=== PATIENT | male | born 1985 | race Asian ===

== ENCOUNTER 2019-07-04 21:38 | Inpatient (IN) | payer OTHER ==
[~2019-07-04] VITALS: Ht 180.3 cm; Wt 57.7 kg
[2019-07-04 22:12] LABS: BASOPHIL % 0.3 % (0-2); PLATELET COUNT 306 x10^3mcL (130-400)
[2019-07-04 22:15] LABS: RED CELL DISTRIBUTION WIDTH 15.8 % (11.5-14.5)
[2019-07-04 22:21] LABS: CALCIUM 7.5 mg/dL (8.5-10.1); CARBON DIOXIDE 23.7 mmol/L (21-32); CHLORIDE SERUM 111 mmol/L (98-107); GFR1 > 60 mL/min; GLUCOSE SERUM 122 mg/dL (74-106); POTASSIUM SERUM 3.4 mmol/L (3.5-5.1); SODIUM SERUM 145 mmol/L (136-145)
[2019-07-04 22:27] LABS: ALKALINE PHOSPHATASE 73 U/L (46-116); ALT/SGPT 16 U/L (16-63); AMYLASE 41 U/L (25-115); AST/SGOT 7 U/L (15-37); BILIRUBIN TOTAL 0.26 mg/dL (0.20-1.00); LIPASE 131 IU/L (73-393)
[2019-07-04 22:31] LABS: ALBUMIN 2.9 g/dL (3.4-5.0); TOTAL PROTEIN, SERUM 5.5 g/dL (6.4-8.2)
[2019-07-04 23:18] LABS: BASOPHIL % 0.2 % (0-2); PLATELET COUNT 245 x10^3mcL (130-400)
[2019-07-04 23:19] LABS: RED CELL DISTRIBUTION WIDTH 15.4 % (11.5-14.5)
[2019-07-05] VITALS (8 sets, daily range): BP systolic 90–115; BP diastolic 59–76; Ht 180.3 cm; Wt 57.7 kg
[2019-07-05 01:21] LABS: PHOSPHOROUS 3.7 mg/dL (2.5-4.9)
[2019-07-05 01:22] LABS: CHOLESTEROL/HDL RATIO 2.2
[2019-07-05 01:53] LABS: FREE T4 1.16 ng/dL (0.76-1.46)
[2019-07-05 02:30] LABS: T3 TOTAL 0.91 ng/mL
[2019-07-05 05:23] LABS: BASOPHIL % 0.1 % (0-2); PLATELET COUNT 244 x10^3mcL (130-400); RED CELL DISTRIBUTION WIDTH 18.5 % (11.5-14.5)
[2019-07-05 05:40] LABS: CALCIUM 7.8 mg/dL (8.5-10.1); CARBON DIOXIDE 22.1 mmol/L (21-32); CHLORIDE SERUM 113 mmol/L (98-107); CREATININE SERUM 0.9 mg/dL (0.7-1.3); GFR1 > 60 mL/min; GLUCOSE SERUM 105 mg/dL (74-106); SODIUM SERUM 143 mmol/L (136-145)
[2019-07-05 06:06] LABS: microscopic required? NO
[2019-07-05 07:53] LABS: UA SPECIFIC GRAVITY 1.025 (1.005-1.035); urine erythrocyte NEGATIVE (NEGATIVE)
[2019-07-05 08:07] LABS: AMPHETAMINE QUAL UR NONE DETECTED (See below)
[2019-07-06 00:06] VITALS: BP 99/66
[2019-07-06 04:21] VITALS: BP 103/68
[2019-07-06 05:49] LABS: CALCIUM 7.6 mg/dL (8.5-10.1); CARBON DIOXIDE 28.3 mmol/L (21-32); CHLORIDE SERUM 109 mmol/L (98-107); GFR1 > 60 mL/min; GLUCOSE SERUM 86 mg/dL (74-106); MAGNESIUM 1.7 mg/dL (1.8-2.4); PHOSPHOROUS 2.8 mg/dL (2.5-4.9); POTASSIUM SERUM 3.9 mmol/L (3.5-5.1); SODIUM SERUM 145 mmol/L (136-145)
[2019-07-06 05:56] LABS: BASOPHIL % 0.2 % (0-2); PLATELET COUNT 235 x10^3mcL (130-400)
[2019-07-06 05:58] LABS: RED CELL DISTRIBUTION WIDTH 18.7 % (11.5-14.5)
[2019-07-06 07:58] VITALS: BP 112/64
[2019-07-06 11:45] VITALS: BP 95/62
[2019-07-06 20:19] VITALS: BP 111/74
[2019-07-07 05:17] VITALS: BP 100/55
[2019-07-07 06:20] LABS: BASOPHIL % 0.4 % (0-2); PLATELET COUNT 228 x10^3mcL (130-400)
[2019-07-07 06:53] LABS: RED CELL DISTRIBUTION WIDTH 19.2 % (11.5-14.5)
[2019-07-07 06:54] LABS: CALCIUM 7.6 mg/dL (8.5-10.1); CARBON DIOXIDE 27.6 mmol/L (21-32); CHLORIDE SERUM 111 mmol/L (98-107); CREATININE SERUM 0.9 mg/dL (0.7-1.3); GFR1 > 60 mL/min; GLUCOSE SERUM 94 mg/dL (74-106); MAGNESIUM 1.8 mg/dL (1.8-2.4); PHOSPHOROUS 3.1 mg/dL (2.5-4.9); POTASSIUM SERUM 3.7 mmol/L (3.5-5.1); SODIUM SERUM 146 mmol/L (136-145)
[2019-07-07 08:29] VITALS: BP 102/65
== END 2019-07-07 12:56 | disposition home or self-care (01) | DRG 919 ==
LOC: ED 21:38 → IC 23:46 → DU 07-06 16:05
PROVIDERS: Emergency Medicine; Internal Medicine Gastroenterology; ADMIT Internal Medicine
PROC: 0W3P8ZZ Control Bleeding in Gastrointestinal Tract, Via Natural or Artificial Opening Endoscopic (ICD-10-PCS; principal; 2019-07-05 11:45)
PROC: 30233N1 Transfusion of Nonautologous Red Blood Cells into Peripheral Vein, Percutaneous Approach (ICD-10-PCS; 2019-07-05 11:45)
DX: K91.840 Postprocedural hemorrhage of a digestive system organ or structure following a digestive system procedure (principal); R57.1 Hypovolemic shock; E43 Unspecified severe protein-calorie malnutrition; K92.2 Gastrointestinal hemorrhage, unspecified; Z68.1 Body mass index [BMI] 19.9 or less, adult; D50.0 Iron deficiency anemia secondary to blood loss (chronic); E83.51 Hypocalcemia; E87.6 Hypokalemia; E83.42 Hypomagnesemia; Y83.8 Other surgical procedures as the cause of abnormal reaction of the patient, or of later complication, without mention of misadventure at the time of the procedure
CPT/HCPCS: 43235; 83880; 84439; C9113; G0378; J0171; J1200; J1610; J2250; J2310; J2354; J2405; J2543; J2765; J2916; J3010; J3480; J3490; J7030; J7050; P9016; P9047